=== PATIENT | male | born 2005 | race Caucasian/White ===

== ENCOUNTER 2024-05-26 14:48 | Outpatient (REF) | payer BC, SELFPAY ==
--- NOTE | ~2024-05-26 | MR_ITS ---
EXAMINATION: MR LUMBAR SPINE WITHOUT CONTRAST CLINICAL INFORMATION: Low back pain COMPARISON: None available. TECHNIQUE: MRI of the lumbar spine was obtained using routine sequences without contrast. FINDINGS: There are 5 nonrib-bearing lumbar-type vertebrae. Rudimentary disc at S1-S2. Slight straightening of the normal lumbar lordosis. No listhesis. No acute bone marrow abnormality. The vertebral body heights are preserved. Disc desiccation with mild to moderate disc height loss at L5-S1. The visualized spinal cord is normal in caliber. No abnormal cord signal. The conus medullaris terminates at L2. T12-L1: No significant spinal canal or neural foraminal narrowing. L1-2: No significant spinal canal or neural foraminal narrowing. L2-3: No significant spinal canal or neural foraminal narrowing. L3-4: No significant spinal canal or neural foraminal narrowing. L4-5: No significant spinal canal or neural foraminal narrowing. L5-S1: Central disc protrusion with superimposed annular fissure. No significant spinal canal stenosis. Mild bilateral neural foraminal narrowing with the disc abutting the exiting L5 nerve roots bilaterally. The paravertebral soft tissues are unremarkable. MR/MR lumbar spine wo con IMPRESSION: At L5-S1, there is a central disc protrusion with superimposed annular fissure contributing to mild bilateral neural foraminal narrowing with the disc abutting the exiting L5 nerve roots. Electronically signed by: Jeff Garcia MD 06/09/2024 09:24 AM EDT
== END 2024-05-26 14:49 | disposition home or self-care (01) ==
LOC: HO.MRI 14:48
PROVIDERS: Visit Provider Family Medicine
DX: M54.50 Low back pain, unspecified (principal)
CPT/HCPCS: 72148